=== PATIENT | female | born 1975 | race Caucasian/White ===

== ENCOUNTER 2020-12-08 10:05 | Emergency (ER) | payer BC, SELFPAY ==
[2020-12-08 11:41] LABS: Absolute Lymphocytes (CBC) 1.5 K/uL (0.7-4.9); Basophils % 0.6 % (0-1.3); Hematocrit 39.4 % (36.0-45.0); RBC Red Blood Cell Count 4.24 M/uL (3.86-4.86)
[2020-12-08 11:55] LABS: ALT/SGPT 37 U/L (12-78); AST/SGOT 18 U/L (15-37); Albumin 3.8 g/dL (3.4-5.0); Alkaline Phosphatase 62 U/L (45-117); BUN Blood Urea Nitrogen 20 mg/dL (7-18); Bicarbonate 28 mmol/L (21-32); Bilirubin Direct 0.1 mg/dL (0-0.2); Bilirubin Total 0.6 mg/dL (0.2-1.0); Glucose Level 75 mg/dL (74-106); Lipase 173 U/L (73-393); Potassium 3.9 mmol/L (3.5-5.1); Protein, Total 7.3 g/dL (6.4-8.2); Sodium Level 141 mmol/L (136-145)
--- NOTE | 2020-12-08 14:12 | RAD REPORT ---
EXAM DESCRIPTION: US - Abdomen Exam Limited - 12/08/2020 1:24 pm CLINICAL HISTORY: r/o GB Right upper quadrant abdominal pain COMPARISON: No comparisons FINDINGS: The gallbladder demonstrates numerous shadowing gallstones. No pericholecystic fluid or ga llbladder wall thickening. The common bile duct is normal measuring 4 mm. The liver demonstrates no findings of intrahepatic biliary dilatation. IMPRESSION: Cholelithiasis.
--- NOTE | 2020-12-08 14:41 | ER ---
Nurse's Notes [facility] Name: Pamella Lyon Age: 45 yrs Sex: Female : 1975 Arrival Date: 12/08/2020 Time: 10:08 Bed 16 Private MD: Diagnosis: Cholelithiasis;Right upper quadrant abdominal tenderness Presentation: 12/08 10:23 Chief complaint: Patient states: i h ave had diarrhea for the past 2 days, and tw2 yesterday really bad cramping yesterday. the cramping comes and goes but it is now doubling me over in pain. right in the middle of my stomach. no appetite. Coronavirus screen: diarrhea, Client presents with at least one sign or symptom that may indicate coronavirus-19. Standard/surgical mask placed on the client. Provider contacted for isolation considerations. Ebola Screen: Patient denies travel to an Ebola-affected area in the 21 days before illness onset. Initial Sepsis Screen: Does the patient meet any 2 criteria? No. Patient's initial sepsis screen is negative. Does the patient have a suspected source of infection? No. Patient's initial sepsis screen is negative. Risk Assessment: Do you want to hurt yourself or someone else? Patient reports no desire to harm self or others. Onset of symptoms was December 08, 2020. 10:23 Method Of Arrival: Ambulatory tw2 10:23 Acuity: CECILIA 3 tw2 Triage Assessment: 10:26 General: Appears in no apparent distress. uncomfortable, well groomed, Behavior is tw2 calm, cooperative. Pain: Complains of pain in abdomen. GI: Reports cramping, diarrhea. 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 - Social history:: Smoking status: . Screenin:05 Abuse screen: Denies threats or abuse. Denies injuries from another. Nutritional ld1 screening: No deficits noted. Tuberculosis screening: No symptoms or risk factors identified. Fall Risk None identified. Assessment: 11:05 General: Appears in no apparent distress. comfortable, Behavior is calm, cooperative, ld1 appropriate for age. Pain: Complains of pain in abdomen Pain currently is 8 out of 10 on a pain scale. Quality of pain is described as throbbing, Pain began 1 day ago. Is intermittent. Neuro: Level of Consciousness is awake, alert, obeys commands, Oriented to person, place, time, situation, Appropriate for age. Cardiovascular: Capillary refill < 3 seconds Patient's skin is warm and dry. Respiratory: Airway is patent Respiratory effort is even, unlabored, Respiratory pattern is regular, symmetrical. GI: Abdomen is round non-distended, Bowel sounds present X 4 quads. 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 : No signs and/or symptoms were reported regarding the genitourinary system. EENT: No signs and/or symptoms were reported regarding the EENT system. Derm: No signs and/or symptoms reported regarding the dermatologic system. Musculoskeletal: No signs and/or symptoms reported regarding the musculoskeletal system. 11:53 Reassessment: Patient appears in no apparent distress at this time. No changes from ld1 previously documented assessment. Patient and/or family updated on plan of care and expected duration. Pain level reassessed. 13:00 Reassessment: Patient appears in no apparent distress at this time. No changes from ld1 previously documented assessment. Patient and/or family updated on plan of care and expected duration. Pain level reassessed. 14:59 Reassessment: Laying in bed talking with mother at bedside. Denies concerns at this ld1 time. Vital Signs: 10:23 BP 136 / 104; Pulse 73; Resp 17; Temp 98.2(TE); Pulse Ox 99% on R/A; Weight 92.08 kg tw2 (R); Height 5 ft. 6 in. (167.64 cm); Pain 0/10; 11:05 BP 145 / 100; Pulse 72; Resp 18; Pulse Ox 97% on R/A; Weight 83.91 kg; Height 5 ft. 6 ld1 in. (167.64 cm); Pain 8/10; 11:53 BP 130 / 93; Pulse 69; Resp 18; Pulse Ox 97% on R/A; ld1 12:50 BP 136 / 86; Pulse 82; Resp 18; Pulse Ox 100% ; ld1 13:50 BP 140 / 86; Pulse 72; Resp 18; Pulse Ox 100% ; ld1 14:59 BP 132 / 90; Pulse 76; Resp 18; Pulse Ox 100% ; ld1 11:05 Body Mass Index 29.86 (83.91 kg, 167.64 cm) ld1 10:23 "when it hits its a 10" tw2 ED Course: 10:08 Patient arrived in ED. as 10:25 Triage completed. tw2 10:26 Arm band placed on. tw2 10:57 Radha Mireles, RN is Primary Nurse. ld1 11:05 Patient has correct armband on for positive identification. Bed in low position. Call ld1 light in reach. Side rails up X2. Pulse ox on. NIBP on. Door closed. Noise minimized. Warm blanket given. 11:05 No provider procedures requiring assistance completed. Inserted saline lock: 20 gauge ld1 in left antecubital area, using aseptic technique. Blood collected. 11:20 Cecil Clinton PA is PHCP. jr8 11:20 Bg Caldwell MD is Attending Physician. jr8 13:24 US Abdomen Limited In Process Unspecified. EDMS 14:40 Chris Escamilla MD is Referral Physician. jr8 15:02 IV discontinued, intact, bleeding controlled, No redness/swelling at site. ld1 Administered Medications: 14:51 Drug: Demerol (meperidine) 25 mg Route: IVP; Site: left antecubital; ld1 14:58 Follow up: Response: No adverse reaction ld1 14:51 Drug: Zofran (Ondansetron) 4 mg Route: IVP; Site: left antecubital; ld1 14:58 Follow up: Response: No adverse reaction ld1 Outcome: 14:40 Discharge ordered by . jr8 15:01 Discharged to home ambulatory. ld1 15:01 Condition: stable 15:01 Discharge instructions given to patient, family, Instructed on discharge instructions, follow up and referral plans. medication usage, Demonstrated understanding of instructions, follow-up care, medications. 15:03 Patient left the ED. ld1 Signatures: Dispatcher [employer] EDAL Isaias, Cecil Ballard PA PA jr8 Christi Marcus RN RN tw2 Radha Mireles RN RN ld1 Corrections: (The following items were deleted from the chart) 11:07 11:05 BP 145 / 100; Pulse 72bpm; Resp 18bpm; Pulse Ox 97% RA; 81.65 kg; Height 5 ft. 6 ld1 in.; BMI: 29.0; Pain 8/10; ld1
--- NOTE | 2020-12-08 14:41 | EDPHYS ---
Physician Documentation [facility] Name: Pamella Lyon Age: 45 yrs Sex: Female : 1975 Arrival Date: 12/08/2020 Time: 10:08 Bed 16 Private MD: ED Physician Bg Caldwell HPI: 12/08 12:23 This 45 yrs old Female presents to ER via Ambulatory with complaints of jr8 Epigastric Pain, Diarrhea. 12:23 The patient presents with abdominal pain in the epigastric area, in the right upper jr8 quadrant. Onset: The symptoms/episode began/occurred acutely, today. The symptoms do not radiate. Associated signs and symptoms: Pertinent positives: nausea. The symptoms are described as stabbing. Modifying factors: The symptoms are alleviated by nothing, the symptoms are aggravated by nothing. Severity of pain: At its worst the pain was moderate in the emergency department the pain has improved mildly. The patient has not experienced similar symptoms in the past. The patient has not recently seen a physician. 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 - Social history:: Smoking status: . ROS: 12:23 Constitutional: Negative for fever, chills, and weight loss. jr8 12:23 Abdomen/GI: Positive for abdominal pain, nausea, diarrhea, Negative for vomiting, diarrhea, abdominal distension, hematemesis, black/tarry stool. 12:23 All other systems are negative. Exam: 12:23 Cardiovascular: Regular rate and rhythm with a normal S1 and S2. No gallops, murmurs, jr8 or rubs. Normal PMI, no JVD. No pulse deficits. Respiratory: Lungs have equal breath sounds bilaterally, clear to auscultation and percussion. No rales, rhonchi or wheezes noted. No increased work of breathing, no retractions or nasal flaring. Back: No spinal tenderness. No costovertebral tenderness. Full range of motion. Skin: Warm, dry with normal turgor. Normal color with no rashes, no lesions, and no evidence of cellulitis. MS/ Extremity: Pulses equal, no cyanosis. Neurovascular intact. Full, normal range of motion. Neuro: Awake and alert, GCS 15, oriented to person, place, time, and situation. Motor strength 5/5 in all extremities. Sensory grossly intact. 12:23 Abdomen/GI: Inspection: obese Bowel sounds: active, all quadrants, Palpation: soft, in all quadrants, mild abdominal tenderness, in the epigastric area and right upper quadrant, mass, is not appreciated, rebound tenderness, is not appreciated, voluntary guarding, is not appreciated, involuntary guarding, is not appreciated, no appreciated organomegaly, Indicators: McBurney's point is not tender, Dickinson's sign is negative, Rovsing's sign is negative, Liver: tenderness, is not appreciated. Vital Signs: 10:23 BP 136 / 104; Pulse 73; Resp 17; Temp 98.2(TE); Pulse Ox 99% on R/A; Weight 92.08 kg tw2 (R); Height 5 ft. 6 in. (167.64 cm); Pain 0/10; 11:05 BP 145 / 100; Pulse 72; Resp 18; Pulse Ox 97% on R/A; Weight 83.91 kg; Height 5 ft. 6 ld1 in. (167.64 cm); Pain 8/10; 11:53 BP 130 / 93; Pulse 69; Resp 18; Pulse Ox 97% on R/A; ld1 12:50 BP 136 / 86; Pulse 82; Resp 18; Pulse Ox 100% ; ld1 13:50 BP 140 / 86; Pulse 72; Resp 18; Pulse Ox 100% ; ld1 14:59 BP 132 / 90; Pulse 76; Resp 18; Pulse Ox 100% ; ld1 11:05 Body Mass Index 29.86 (83.91 kg, 167.64 cm) ld1 10:23 "when it hits its a 10" tw2 MDM: 11:25 Patient medically screened. jr8 14:39 Data reviewed: vital signs, nurses notes, lab test result(s), radiologic studies, jr8 ultrasound. Data interpreted: Pulse oximetry: on room air is 97 %. Interpretation: normal. Counseling: I had a detailed discussion with the patient and/or guardian regarding: the historical points, exam findings, and any diagnostic results supporting the discharge/admit diagnosis, lab results, radiology results, the need for outpatient follow up, a general surgeon, to return to the emergency department if symptoms worsen or persist or if there are any questions or concerns that arise at home. Response to treatment: the patient's symptoms have markedly improved after treatment. Special discussion: Based on the patient's Hx, exam, and Dx evaluation, there is no indication for emergent surgery or inpatient Tx. It is understood by the patient/guardian that if the Sx's persist or worsen they need to return immediately for re-evaluation. 12/08 11:10 Order name: Basic Metabolic Panel; Complete Time: 12:10 1 12/08 11:10 Order name: CBC with Diff; Complete Time: 11:46 ld1 12/08 11:10 Order name: Hepatic Function; Complete Time: 12:10 ld1 12/08 11:10 Order name: Lipase; Complete Time: 12:10 1 12/08 12:11 Order name: US Abdomen Limited; Complete Time: 14:18 8 12/08 11:10 Order name: IV Saline Lock; Complete Time: 11:10 ld1 12/08 11:10 Order name: Labs collected and sent; Complete Time: 11:10 ld1 Administered Medications: 14:51 Drug: Demerol (meperidine) 25 mg Route: IVP; Site: left antecubital; ld1 14:58 Follow up: Response: No adverse reaction ld1 14:51 Drug: Zofran (Ondansetron) 4 mg Route: IVP; Site: left antecubital; ld1 14:58 Follow up: Response: No adverse reaction ld1 Disposition: 12/09 07:11 Co-signature as Attending Physician, Bg Caldwell MD I agree with the assessment and kdr plan of care. Disposition: 12/08/20 14:40 Discharged to Home. Impression: Cholelithiasis, Right upper quadrant abdominal tenderness. - Condition is Stable. - Discharge Instructions: Abdominal Pain, Adult, Cholelithiasis. - Prescriptions for Cipro 500 mg Oral Tablet - take 1 tablet by ORAL route every 12 hours for 10 days; 20 tablet. Tylenol- Codeine #3 300-30 mg Oral Tablet - take 2 tablet by ORAL route every 4-6 hours As needed; 30 tablet. Zofran 4 mg Oral Tablet - take 1 tablet by ORAL route every 12 hours As needed; 20 tablet. - Medication Reconciliation Form, Thank You Letter, Antibiotic Education, Prescription Opioid Use form. - Follow up: Chris Escamilla MD; When: 2 - 3 days; Reason: Recheck today's complaints, Continuance of care, Re-evaluation by your physician. - Problem is new. - Symptoms have improved. Signatures: Dispatcher [employer] EDMI Bg Caldwell MD MD kdr Roszak, Josh, PA PA jr8 Christi Marcus RN RN tw2 Radha Mireles RN RN ld1 Corrections: (The following items were deleted from the chart) 12/08 15:03 14:40 12/08/2020 14:40 Discharged to Home. Impression: Cholelithiasis; Right upper ld1 quadrant abdominal tenderness. Condition is Stable. Forms are Medication Reconciliation Form, Thank You Letter, Antibiotic Education, Prescription Opioid Use. Follow up: Dr. Chris Escamilla; When: 2 - 3 days; Reason: Recheck today's complaints, Continuance of care, Re-evaluation by your physician. Problem is new. Symptoms have improved. jr8
[2020-12-08] MEDS ORDERED: ONDANSETRON 4 MG/2 ML VIAL ONE (15:05)
[2020-12-08] MEDS ORDERED: MEPERIDINE HCL 25 MG/ML SYR ONE (15:06)
[2020-12-08 15:09] VITALS: TEMP 98.2
[2020-12-08 15:13] VITALS: O2SAT 100
[2020-12-08 15:16] VITALS: BP 132/90
== END 2020-12-08 15:03 | disposition home or self-care (01) ==
LOC: ER 10:05
DX: K80.20 Calculus of gallbladder without cholecystitis without obstruction (principal)
CPT/HCPCS: 36415; 76705; 80048; 80076; 83690; 85025; J2175; J2405